=== PATIENT | female | born 1970 | race Caucasian/White ===

== ENCOUNTER → 2016-06-28 | Outpatient (CLI) | payer OTHER ==
[~2016-06-28] MED LIST: HYZAAR 25 MG-101 TAB PO; PERCOCET 325 MG1 TA2 PO; PRILOSEC 20MG20 MG PO; SENOKOT8.6 MG PO; WELLBUTRIN XL300 M1 PO
== END ==
LOC: COL.RAD 07:30
DX: R93.422 Abnormal radiologic findings on diagnostic imaging of left kidney (principal)

== ENCOUNTER 2016-07-18 09:32 | Inpatient (IN) | payer OTHER ==
[~2016-07-18] VITALS: Ht 156.2 cm; Wt 112.9 kg
[2016-09-13] VITALS (13 sets, daily range): BP systolic 121–146; BP diastolic 59–86; PULSE 68–93; TEMP 97.7–98.6
[2016-09-13] MEDS ORDERED: HYZAAR 25 MG-101 TAB PO (06:22)
[2016-09-13] MEDS ORDERED: WELLBUTRIN XL300 M1 PO (06:22)
[2016-09-13] MEDS ORDERED: PRILOSEC 20MG20 MG PO (06:22)
[2016-09-14 01:39] VITALS: BP 129/73; PULSE 89; TEMP 97.2
[2016-09-14 06:37] VITALS: BP 137/84; PULSE 86; TEMP 97.9
[2016-09-14 07:30] LABS: MEAN CELL VOLUME 90 fl (80.0-100.0); MEAN CORPUSCULAR HGB CONC 33 g/dl (33.0-37.0); MEAN PLATELET VOLUME 10.1 fl (7.4-10.4); PLATELET COUNT 287 K/mm3 (130-400); REDCELL DISTRIBUTION WIDTH-CV 12.8 % (11.5-14.5)
[2016-09-14 07:36] LABS: HEMATOCRIT 35.9 % (37.0-47.0); HEMOGLOBIN 11.7 g/dl (12.5-16.0); MEAN CORPUSCULAR HEMOGLOBIN 29 pg (27.0-31.0); WHITE BLOOD COUNT 21.9 K/mm3 (4.8-10.8)
[2016-09-14 08:06] LABS: CALCIUM 8.2 mg/dL (8.4-10.2); CREATININE, serum 0.77 mg/dL (0.52-1.25); POTASSIUM 3.8 mmol/L (3.4-5.0)
[2016-09-14 08:42] LABS: ADD PATHOLOGY DIFF REVIEW NO
[2016-09-14 08:47] LABS: BAND 26 % (0-10); EOSINOPHIL 1 % (0-4); MYELOCYTE 1 % (0-0); NEUTROPHILS 58 % (42.0-75.2); PLATELET ESTIMATE NORMAL (NORMAL); TOTAL CELLS COUNTED 100
[2016-09-14 08:48] LABS: HYPOCHROMIA 1+
[2016-09-14 09:42] VITALS: BP 139/68; PULSE 95; TEMP 98.6
[2016-09-14 13:28] VITALS: BP 154/73; PULSE 99; TEMP 98.5
[2016-09-14 17:29] VITALS: BP 151/89; PULSE 91; TEMP 97.9
[2016-09-14 21:38] VITALS: BP 129/74; PULSE 88; TEMP 98.3
[2016-09-15 02:10] VITALS: BP 144/68; PULSE 92; TEMP 98.4
[2016-09-15 06:32] VITALS: BP 144/83; PULSE 96; TEMP 98.4
[2016-09-15 10:08] VITALS: BP 139/89; PULSE 95; TEMP 98.8
[2016-09-15 13:55] VITALS: BP 135/65; PULSE 88
[2016-09-15] MEDS ORDERED: PERCOCET 325 MG1 TA2 PO (14:28)
[2016-09-15] MEDS ORDERED: SENOKOT8.6 MG PO (14:30)
== END 2016-09-15 14:35 | disposition home or self-care (01) | DRG 657 ==
LOC: SURG 09-13 05:34 → INPTSU 09-13 05:34 → SURG 09-13 07:30
PROVIDERS: Urology
PROC: 8E0W4CZ Robotic Assisted Procedure of Trunk Region, Percutaneous Endoscopic Approach (ICD-10-PCS; 2016-09-13)
PROC: 0TB14ZZ Excision of Left Kidney, Percutaneous Endoscopic Approach (ICD-10-PCS; principal; 2016-09-13 07:30)
DX: C64.2 Malignant neoplasm of left kidney, except renal pelvis (principal); Z68.42 Body mass index [BMI] 45.0-49.9, adult; I10 Essential (primary) hypertension; E66.01 Morbid (severe) obesity due to excess calories
CPT/HCPCS: A4315; A9284; C1713; J0330; J0690; J1100; J1170; J1885; J2270; J2405; J2704; J2710; J3010; J7120

== ENCOUNTER → 2016-12-15 | Outpatient (CLI) | payer OTHER | LOC: COL.RAD 09:59 | DX: R93.422 Abnormal radiologic findings on diagnostic imaging of left kidney (principal) | CPT/HCPCS: Q9967 ==

== ENCOUNTER → 2016-12-15 | Outpatient (CLI) | payer OTHER | LOC: MC.RAD 07:00 | DX: Z12.31 Encounter for screening mammogram for malignant neoplasm of breast (principal) ==

== ENCOUNTER → 2017-03-21 | Outpatient (CLI) | payer BC | LOC: COL.RAD 15:29 | DX: C64.2 Malignant neoplasm of left kidney, except renal pelvis (principal) ==

== ENCOUNTER → 2018-08-30 | Outpatient (CLI) | payer BC | LOC: COL.RAD 07:30 | DX: Z85.528 Personal history of other malignant neoplasm of kidney (principal) ==

== ENCOUNTER → 2019-01-03 | Outpatient (CLI) | payer BC | LOC: MC.RAD 06:58 | DX: Z12.31 Encounter for screening mammogram for malignant neoplasm of breast (principal) ==

== ENCOUNTER → 2021-02-03 | Outpatient (CLI) | payer BC | LOC: MC.RAD 14:25 | DX: Z12.31 Encounter for screening mammogram for malignant neoplasm of breast (principal); N63.20 Unspecified lump in the left breast, unspecified quadrant ==

== ENCOUNTER → 2021-02-12 | Outpatient (CLI) | payer BC | LOC: MC.RAD 09:58 | DX: N63.20 Unspecified lump in the left breast, unspecified quadrant (principal) ==

== ENCOUNTER → 2021-09-15 | Outpatient (CLI) | payer BC | LOC: COL.RAD 09:51 | DX: N20.0 Calculus of kidney (principal); Z85.528 Personal history of other malignant neoplasm of kidney | CPT/HCPCS: Q9967 ==